=== PATIENT | female | born 1960 | race Caucasian/White ===

== ENCOUNTER 2017-11-09 15:54 | Outpatient (CLI) | payer BC ==
--- NOTE | 2017-11-10 11:39 | Mammography Report ---
DIGITAL SCREENING MAMMOGRAM: 11/09/2017 CLINICAL INDICATION: A 57-year-old nulliparous patient, for screening. COMPARISON: 12/2015, 06/2014, 02/2006. TECHNIQUE: Routine CC and MLO projections were obtained of the breasts. Bilateral laterally exaggerated craniocaudal views. FINDINGS: The breasts again demonstrate heterogeneously dense fibroglandular parenchyma bilaterally. In the left outer posterior breast, there is a possible obscured nodule. Further evaluation with spot compression views and possible ultrasound is recommended. No mammographically suspicious findings are appreciated in the right breast. IMPRESSION: INCOMPLETE EXAMINATION. RECOMMENDATION: ADDITIONAL EVALUATION OF THE LEFT BREAST ABOVE. BIRADS CATEGORY 0-INCOMPLETE. STANDARD QUALIFYING STATEMENTS: 1. This examination was reviewed with the aid of Computer-Aided Detection (CAD). 2. A negative or benign imaging report should not delay biopsy if clinically suspicious findings are present. Consider surgical consultation if warranted. More than 5% of cancers are not identified by imaging. 3. Dense breasts may obscure an underlying neoplasm. TD: 11/10/2017 11:39
== END 2017-11-09 15:55 | disposition home or self-care (01) ==
LOC: DI 15:54
PROVIDERS: ATTEND Internal Medicine
DX: Z12.31 Encounter for screening mammogram for malignant neoplasm of breast (principal); R92.8 Other abnormal and inconclusive findings on diagnostic imaging of breast
CPT/HCPCS: 77067

== ENCOUNTER 2017-11-29 08:50 | Outpatient (CLI) | payer BC ==
--- NOTE | 2017-11-30 15:37 | DEXA Report ---
EXAM: DEXA 11/29/2017 CLINICAL INDICATION: Osteopenia. TECHNIQUE: Dual energy x-ray absorptiometry (DXA) was performed on a [employer] system. Regions measured are the AP spine, femoral neck, and, if needed, forearm. COMPARISON: None. In accordance with the International Society for Clinical Densitometry (ISCD) guidelines, data from previous exams may be reanalyzed using current recommendations and techniques. This is done to allow a more accurate basis for comparison with the current study. FINDINGS: The data for the lumbar spine is as follows: REGION BMD (g/cm/cm) T-SCORE Z-SCORE L1 1.081 -0.4 0.6 L2 1.169 -0.3 0.7 L3 1.156 -0.4 0.6 L4 1.074 -1.1 -0.1 L1-L4 1.120 -0.5 0.5 NOTE: All evaluable vertebrae are used for classification. The data for the hip is as follows: REGION BMD (g/cm/cm) T-SCORE Z-SCORE Neck 0.845 -1.4 -0.3 TOTAL 0.880 -1.0 -0.2 NOTE: The femoral neck or total proximal femur, whichever is lowest, is used for classification. IMPRESSION WHO CLASSIFICATION BASED ON THE INTERNATIONAL REFERENCE STANDARD IS OSTEOPENIA (REFERENCE LEFT FEMORAL NECK). FRACTURE RISK INCREASED. RECOMMENDATION: Patients with diagnosis of osteoporosis or osteopenia should have regular bone mineral density assessment. For those eligible for Medicare, routine testing is allowed once every 2 years. Testing frequency can be increased for patients who have rapidly progressing disease or for those who are receiving medical therapy to restore bone mass. COMMENT World Health Organization (WHO) definitions for osteoporosis and osteopenia: NORMAL BMD: T-score at 1.0 or higher, fracture risk is low. OSTEOPENIA BMD: T-score between 1.0 and -2.5, fracture risk is increased. OSTEOPOROSIS BMD: T-score at 2.5 or lower, fracture risk high. National Osteoporosis Foundation recommends: 1. Obtain adequate dietary calcium (at least 1200 mg per day) and vitamin D (400 -800 international units per day). 2. Participate, as appropriate, in regular weightbearing and muscle- strengthening exercise. 3. Avoid tobacco use and reduce alcohol and caffeine intake. 4. For more detailed information see the website at www.NOF.org. TD: 11/29/2017 10:19 AJNE
== END 2017-11-29 08:51 | disposition home or self-care (01) ==
LOC: DI 08:50
PROVIDERS: ATTEND Internal Medicine
DX: M85.852 Other specified disorders of bone density and structure, left thigh (principal)
CPT/HCPCS: 77080

== ENCOUNTER 2018-01-11 14:32 | Outpatient (CLI) | payer BC ==
--- NOTE | 2018-01-11 14:56 | Mammography Report ---
Procedure Date: 01/11/2018 Accession Number: [id number] / [id number] Procedure: ISAIAS - Diag Special Views Dig LT CPT Code: FULL RESULT: EXAM: Diag Special Views Dig LT DATE: 01/11/2018 2:47 PM CLINICAL HISTORY: Possible nodule on screening TECHNIQUE: Left true lateral and spot compression views COMPARISON: 11/09/2017, 01/28/2016, 07/23/2014 FINDINGS: The left breast again demonstrates heterogeneously dense fibroglandular parenchyma. The questioned density in the left upper breast does not persist on additional imaging. No underlying mass lesion or architectural distortion is seen. IMPRESSION: Negative examination RECOMMENDATION: Routine annual screening unless otherwise clinically indicated. BIRADS CATEGORY 1: Negative STANDARD QUALIFYING STATEMENTS: 1. This examination was reviewed with the aid of Computer-Aided Detection (CAD). 2. A negative or benign imaging report should not delay biopsy if clinically suspicious findings are present. Consider surgical consultation if warrented. More than 5% of cancers are not identified by imaging. 3. Dense breasts may obscure an underlying neoplasm.
== END 2018-01-11 14:33 | disposition home or self-care (01) ==
LOC: DI 14:32
PROVIDERS: ATTEND Internal Medicine
DX: R92.8 Other abnormal and inconclusive findings on diagnostic imaging of breast (principal)

== ENCOUNTER 2018-07-26 10:48 | Outpatient (CLI) | payer BC ==
--- NOTE | 2018-07-26 12:03 | XRAY Report ---
Reason: CERVICALGIA, DORSALGIA, RADICULOPATHY Procedure Date: 07/26/2018 Accession Number: [id number] / [id number] Procedure: XR - Lumbar Spine 2 View CPT Code: FULL RESULT: EXAM: LUMBOSACRAL SPINE RADIOGRAPHY EXAM DATE: 07/26/2018 11:05 AM. CLINICAL HISTORY: Cervicalgia, dorsalgia, radiculopathy. COMPARISONS: Thoracic spine 2 view 07/26/2018 10:49 AM Cervical spine 2 view 07/26/2018 10:49 AM. TECHNIQUE: 2 views. FINDINGS: Alignment: Mild compensatory levoconvex lumbar scoliosis in the setting of thoracic scoliosis. Bones: Five [id number] lumbar vertebral bodies are present with vestigial ribs on T12. No fractures or bone lesions. Disks: Disk space height is mostly maintained with the exception of L5-S1, moderate loss of height at that level. Facets: Moderate to severe facet arthropathy at L4-L5. Sacroiliac Joints: Unremarkable. Soft Tissues: Normal. The visualized bowel gas pattern is normal. IMPRESSION: Facet arthropathy predominant degenerative changes with mild compensatory levoconvex scoliosis following the thoracic scoliosis. RADIA
--- NOTE | 2018-07-26 12:16 | XRAY Report ---
Reason: CERVICALGIA Procedure Date: 07/26/2018 Accession Number: [id number] / [id number] Procedure: XR - Cervical Spine 2 View CPT Code: FULL RESULT: EXAM: CERVICAL SPINE RADIOGRAPHY EXAM DATE: 07/26/2018 11:05 AM. CLINICAL HISTORY: Cervicalgia. COMPARISONS: None. TECHNIQUE: 3 views. FINDINGS: Alignment: 2 mm of anterolisthesis of C7 on T1, felt to be degenerative in nature. Bones: The cervical vertebral bodies and posterior elements are well visualized from the skull base through C7-T1. No fractures or bone lesions. Disks: Mild multilevel loss of disk space height most pronounced at C5 through C7. Facets: Mild multilevel facet arthropathy more pronounced at the lower cervical spine Soft Tissues: Normal. No prevertebral soft tissue swelling. The visualized lung apices are clear. IMPRESSION: Mild multilevel degenerative disease. RADIA
--- NOTE | 2018-07-26 12:16 | XRAY Report ---
Reason: CERVICALGIA, DORSALGIA, RADICULOPATHY Procedure Date: 07/26/2018 Accession Number: [id number] / [id number] Procedure: XR - Thoracic Spine 2 View CPT Code: FULL RESULT: EXAM: THORACIC SPINE RADIOGRAPHY EXAM DATE: 07/26/2018 11:05 AM. CLINICAL HISTORY: Cervicalgia, dorsalgia, radiculopathy. COMPARISON: None. TECHNIQUE: 2 views. FINDINGS: Alignment: There is a mild dextroconvex scoliosis centered about T5 where the spinous process is not clearly visualized. Findings are concerning for occult underlying segmentation defect, possibly at T3-T4. Bones: No fractures or bone lesions. Disks: Normal. Disk heights are maintained. Soft Tissues: Normal. The visualized lungs and cardiomediastinal silhouette are normal. IMPRESSION: Dextroconvex scoliosis centered about T5, possibly due to segmentation defect. RADIA
== END 2018-07-26 10:49 | disposition home or self-care (01) ==
LOC: DI 10:48
PROVIDERS: ATTEND Chiropractor
DX: M47.9 Spondylosis, unspecified (principal); M50.323 Other cervical disc degeneration at C6-C7 level; M43.13 Spondylolisthesis, cervicothoracic region; M41.9 Scoliosis, unspecified; M51.37 Other intervertebral disc degeneration, lumbosacral region
CPT/HCPCS: 72040; 72070; 72100

== ENCOUNTER 2018-11-28 02:36 | Emergency (ER) | payer BC ==
--- NOTE | 2018-11-28 02:48 | ED Physician Documentation ---
History of Present Illness - Stated complaint Stated Complaint: L SIDE,BACK PAIN - History obtained from History obtained from: Patient - History of Present Illness Timing: Prior to arrival - Additonal information Additional information: Patient is a previously healthy 58-year-old female presenting with fleeting chest discomfort that occurred about half an hour prior to arrival. Patient reports that she was sleeping and woke up with centralized back pain that was associated with left-sided chest pain. Patient describes this more as a pressure sensation. Patient also believes that this pain radiated towards her left arm. Patient sat up and this pain disappeared. Patient is unsure if she was sleeping in an odd position or if her arm had fallen asleep. However, she denies paresthesias, paralysis, shortness of breath, pleuritic chest pain, cough, acid reflux-like symptoms, abdominal pain, nausea, vomiting, urinary or stool changes, leg pain or swelling, lightheadedness, dizziness, diaphoresis, or syncope. Patient does note that she has had this type of fleeting sensation before when she has received acupuncture for her neck pain. Patient reports that she lays flat during acupuncture sessions and this pain sometimes occurs. At this time, patient is asymptomatic. No other improving or worsening factors noted. Review of Systems Cardiac: reports: Chest pain / pressure. denies: Palpitations, Pedal edema, Calf pain Respiratory: denies: Dyspnea PD PAST MEDICAL HISTORY - Past Medical History Past Medical History: No - Past Surgical History Past Surgical History: No - Allergies Allergies/Adverse Reactions: Allergies Allergy/AdvReac Type Severity Reaction Status Date / Time No Known Drug Allergies Allergy Verified 11/28/18 02:49 PD ED PE NORMAL - Vitals Vital signs reviewed: Yes - General General: Alert and oriented X 3, No acute distress, Well developed/nourished - HEENT HEENT: Atraumatic - Cardiac Cardiac: RRR, No murmur - Respiratory Respiratory: No respiratory distress, Clear bilaterally - Abdomen Abdomen: Normal bowel sounds, Soft, Non tender, Non distended - Derm Derm: Normal color, Warm and dry, No rash - Extremities Extremities: No deformity, No tenderness to palpate, No edema, No calf tenderness / cord - Neuro Neuro: Alert and oriented X 3, No motor deficit, No sensory deficit - Psych Psych: Normal mood, Normal affect Results - Vitals Vitals: Vital Signs - 24 hr 11/28/18 11/28/18 11/28/18 02:46 03:23 03:32 Temperature 36.3 C L Heart Rate 60 64 Respiratory 17 17 17 Rate Blood Pressure 133/84 H O2 Saturation 100 100 11/28/18 11/28/18 11/28/18 03:49 04:08 04:39 Temperature Heart Rate 57 L Respiratory 16 14 17 Rate Blood Pressure 138/80 H O2 Saturation 100 11/28/18 11/28/18 11/28/18 04:42 05:39 06:10 Temperature Heart Rate 62 60 Respiratory 16 15 17 Rate Blood Pressure 141/87 H O2 Saturation 98 97 Oxygen O2 Source Room air - EKG (time done) 0250 Rate: Rate (enter#) (56) Rhythm: NSR Ischemia: Other (Questionable mild elevation of ST in V2 and V3, but feel more likely wndering baseline/artifact) - Labs Labs: Laboratory Tests 11/28/18 11/28/18 11/28/18 03:15 03:15 03:15 WBC 5.3 RBC 4.20 Hgb 12.6 Hct 36.8 L MCV 87.7 MCH 29.9 MCHC 34.1 RDW 13.3 Plt Count 265 MPV 7.6 L Neut # (Auto) 2.2 Lymph # (Auto) 2.1 [place] # (Auto) 0.7 Eos # (Auto) 0.2 Baso # (Auto) 0.1 Absolute Nucleated RBC 0.00 Nucleated RBC % 0.0 Sodium 139 Potassium 4.1 Chloride 103 Carbon Dioxide 26 Anion Gap 10.0 BUN 22 H Creatinine 0.8 Estimated GFR (MDRD) 73 L Glucose 95 Calcium 10.0 Total Bilirubin 0.9 AST 23 ALT 19 Alkaline Phosphatase 57 Troponin I < 0.04 Total Protein 7.7 Albumin 4.0 Globulin 3.7 Albumin/Globulin Ratio 1.1 Lipase 53 H 11/28/18 06:17 WBC RBC Hgb Hct MCV MCH MCHC RDW Plt Count MPV Neut # (Auto) Lymph # (Auto) [place] # (Auto) Eos # (Auto) Baso # (Auto) Absolute Nucleated RBC Nucleated RBC % Sodium Potassium Chloride Carbon Dioxide Anion Gap BUN Creatinine Estimated GFR (MDRD) Glucose Calcium Total Bilirubin AST ALT Alkaline Phosphatase Troponin I < 0.04 Total Protein Albumin Globulin Albumin/Globulin Ratio Lipase PD MEDICAL DECISION MAKING - ED course Complexity details: reviewed results, re-evaluated patient, considered dif ferential, d/w patient, d/w family ED course: Patient describes fleeting chest discomfort that almost sounds positional making musculoskeletal discomfort or spasm possible. Patient denies GERD-like symptoms and have lower suspicion for GERD, anxiety, esophageal spasm necessarily. Patient denies respiratory component and do not feel that she likely has PE or pneumonia and can otherwise be ruled out by PERC criteria.Obtained chest x-ray to further evaluate, which returned unremarkable for acute pathology. EKG did not show signs of ischemia lab work including repeat troponins obtained which also returned unremarkable. I have low suspicion at this time for acute ischemia, ACS, current infarction, unstable angina. However, had repeated lengthy discussions with patient and family regarding the need for close primary care follow-up and referral to cardiology to obtain stress test and echocardiogram. Also discussed strict return precautions. Otherwise, I feel the patient is safe to discharge home. Of note, during ED stay, patient remained asymptomatic and without complaints. Patient and family voiced understanding of plan and are comfortable with discharge. Departure - Departure Disposition: 01 Home, Self Care Clinical Impression: Chest pain, unspecified Qualifiers: Chest pain type: unspecified Qualified Code(s): R07.9 - Chest pain, unspecified Condition: Good Instructions: ED Chest Pain Atypical Unkn Cause Follow-Up: Nandini Garcia MD [Primary Care Provider] - Tomorrow Comments: Please contact you primary care physician later today for referral to cardiology. Recommend obtaining cardiology follow-up which will likely include stress test and echocardiogram to further evaluate for underlying heart disease. Return to ED sooner if expands return of symptoms, worsening of symptoms, or other concerns.
[2018-11-28] MEDS ORDERED: SODIUM CHLORIDE 0.9% 1,000 ML IV ONE (03:03)
[2018-11-28] MEDS ORDERED: ASPIRIN CHEW 81 MG TABLET PO STA (03:03)
[2018-11-28 03:27] LABS: BASOPHILS # (AUTO) 0.1 10^3/uL (0.0-0.1); BASOPHILS % (AUTO) 1.4 %; EOSINOPHILS # (AUTO) 0.2 10^3/uL (0.0-0.7); EOSINOPHILS % (AUTO) 3.9 %; HGB - HEMOGLOBIN 12.6 g/dL (12.0-16.0); LYMPHOCYTES # (AUTO) 2.1 10^3/uL (1.5-3.5); LYMPHOCYTES % (AUTO) 40.5 %; MEAN CORPUSCULAR HEMOGLOBIN 29.9 pg (27.0-31.0); MEAN CORPUSCULAR HGB CONC 34.1 g/dL (32.0-36.0); MEAN CORPUSCULAR VOLUME 87.7 fL (81.0-99.0); MEAN PLATELET VOLUME 7.6 fL (7.9-10.8); MONOCYTES # (AUTO) 0.7 10^3/uL (0.0-1.0); MONOCYTES % (AUTO) 12.7 %; NEUTROPHILS # (AUTO) 2.2 10^3/uL (1.5-6.6); NEUTROPHILS % (AUTO) 41.5 %; PLT - PLATELET COUNT 265 10^3/uL (130-450); RED CELL DISTRIBUTION WIDTH 13.3 % (12.0-15.0); WHITE BLOOD COUNT 5.3 x10^3/uL (4.8-10.8)
[2018-11-28 03:37] LABS: ALBUMIN/GLOBULIN RATIO 1.1 (1.0-2.2); BILIRUBIN,TOTAL 0.9 mg/dL (0.2-1.0); CREATININE 0.8 mg/dL (0.4-1.0); TOTAL PROTEIN 7.7 g/dL (6.7-8.2)
--- NOTE | 2018-11-28 03:49 | XRAY Report ---
Reason: chest pain Procedure Date: 11/28/2018 Accession Number: [id number] / [id number] Procedure: XR - Chest 2 View X-Ray CPT Code: 60710 FULL RESULT: EXAM: CHEST RADIOGRAPHY EXAM DATE: 11/28/2018 03:40 AM. CLINICAL HISTORY: Chest pain. COMPARISON: None. TECHNIQUE: 2 views. FINDINGS: Lungs/Pleura: Large lung volumes. No alveolar consolidation or definite pleural effusion. Scattered small nodular densities which may be calcified. No pneumothorax. Mediastinum: Heart and mediastinal contours are unremarkable. Other: Surgical clips suggesting prior cholecystectomy. IMPRESSION: 1. Large lung volumes. 2. Scattered small nodular densities, possibly calcified granulomas. RADIA
[2018-11-28 06:53] VITALS: BP 116/74
== END 2018-11-28 06:53 | disposition home or self-care (01) ==
LOC: ED 02:36
DX: R07.9 Chest pain, unspecified (principal)
CPT/HCPCS: 36415; 71046; 80053; 83690; 84484; 85025; 93005; 96360; 99284; A9270

== ENCOUNTER 2020-06-15 14:05 | Outpatient (CLI) | payer BC ==
[2020-06-15 17:41] LABS: BASOPHILS % (AUTO) 0.3 %; EOSINOPHILS # (AUTO) 0.1 10^3/uL (0.0-0.7); EOSINOPHILS % (AUTO) 1.4 %; HGB - HEMOGLOBIN 12.6 g/dL (12.0-16.0); LYMPHOCYTES # (AUTO) 1.4 10^3/uL (1.5-3.5); LYMPHOCYTES % (AUTO) 24.7 %; MEAN CORPUSCULAR HEMOGLOBIN 30.1 pg (27.0-31.0); MEAN CORPUSCULAR HGB CONC 32.8 g/dL (32.0-36.0); MEAN CORPUSCULAR VOLUME 91.6 fL (81.0-99.0); MONOCYTES # (AUTO) 0.6 10^3/uL (0.0-1.0); MONOCYTES % (AUTO) 10.7 %; NEUTROPHILS # (AUTO) 3.7 10^3/uL (1.5-6.6); NEUTROPHILS % (AUTO) 62.7 %; PLT - PLATELET COUNT 289 10^3/uL (130-450); RED BLOOD COUNT 4.19 10^6/uL (4.20-5.40); RED CELL DISTRIBUTION WIDTH 12.9 % (12.0-15.0); WHITE BLOOD COUNT 5.8 x10^3/uL (4.8-10.8)
[2020-06-15 18:05] LABS: ALBUMIN 4.1 g/dL (3.2-5.5); ALBUMIN/GLOBULIN RATIO 1.1 (1.0-2.2); ALKALINE PHOSPHATASE 51 IU/L (42-121); ALT ALANINE AMINOTRANSFERASE 18 IU/L (10-60); AST ASPARTATE AMINOTRANSFERASE 25 IU/L (10-42); BILIRUBIN,TOTAL 1.1 mg/dL (0.2-1.0); BUN - BLOOD UREA NITROGEN 20 mg/dL (6-20); CALCIUM 9.9 mg/dL (8.5-10.3); CARBON DIOXIDE - CO2 26 mmol/L (21-32); CHLORIDE 103 mmol/L (101-111); CREATININE 0.9 mg/dL (0.4-1.0); GLUCOSE 76 mg/dL (70-100); SODIUM 140 mmol/L (135-145); TOTAL PROTEIN 7.7 g/dL (6.7-8.2)
[2020-06-15 18:09] LABS: CRP - C-REACTIVE PROTEIN < 1.0 mg/dL (0-1.0)
== END 2020-06-15 23:59 | disposition home or self-care (01) ==
LOC: LAB.WCP 14:05
PROVIDERS: ATTEND Family Medicine
DX: L98.9 Disorder of the skin and subcutaneous tissue, unspecified (principal); Z90.5 Acquired absence of kidney
CPT/HCPCS: 36415; 80053; 85025; 85651; 86038; 86039; 86140

== ENCOUNTER 2021-03-23 14:18 | Outpatient (CLI) | payer BC ==
--- NOTE | 2021-03-24 12:15 | Mammography Report ---
BILATERAL DIGITAL SCREENING MAMMOGRAM 3D/2D: 03/23/2021 CLINICAL: Routine screening. Comparison is made to exams dated: 03/11/2020 mammogram, 11/09/2017 mammogram, 01/28/2016 mammogram, an d 01/11/2018 mammogram - [facility]. The tissue of both breasts is heterogeneously dense. This may lower the sensitivity of mammography. No significant masses, calcifications, or other findings are seen in either breast. There has been no significant interval change. IMPRESSION: NEGATIVE There is no mammographic evidence of malignancy. A 1 year screening mammogram is recommended. This exam was interpreted at Station ID: [id number]. NOTE: For mammograms, a report in lay terms will be sent to the patient. Approximately 15% of breast malignancies will not be visualized mammographically. In the management of a palpable breast mass, a negative mammogram must not discourage biopsy of a clinically suspicious lesion. Electronically Signed By: Guanaco Christensen M.D. ar/penrad:03/23/2021 16:11:10 ACR BI-RADS Category 1: Negative 3341F PARENCHYMAL PATTERN: (D) - The breast(s) demonstrate(s) heterogeneously dense fibroglandular tim fletcher. BI-RADS CATEGORY: (1) - 1 RECOMMENDATION: (ANNUAL) - Recommend routine annual screening mammography. [id number] 1 year screening LATERALITY: (B)
== END 2021-03-23 14:19 | disposition home or self-care (01) ==
LOC: DI 14:18
DX: Z12.31 Encounter for screening mammogram for malignant neoplasm of breast (principal)

== ENCOUNTER 2021-04-28 07:41 | Day surgery (SDC) | payer BC ==
[~2021-04-28 07:41] MED LIST: PROPOFOL 200 MG/20 ML VIAL IVP ONE
[2021-04-28] MEDS ORDERED: LACTATED RINGERS 1,000 ML IV ONE ×2 (07:45→09:39)
--- NOTE | 2021-04-28 08:54 | ANESTHESIA ---
Pre-Anesthesia VS, & Labs - Diagnosis screening - Procedure colonoscopy w/possible biopsies Vital Signs: Temp Pulse Resp BP Pulse Ox 36.7 C 67 12 129/86 H 100 04/28/21 07:46 04/28/21 07:46 04/28/21 07:46 04/28/21 07:46 04/28/21 07:46 Height: 5 ft 7 in Weight (kg): 65 kg Body Mass Index: 22.4 BMI Classification: Healthy weight - NPO >8 hours - Is Patient ?: No - Lab Results Lab results reviewed: Yes Home Medications and Allergies Home Medications: Ambulatory Orders Ascorbic Acid [Vitamin C] 600 mg PO DAILY 04/27/21 Calcium Carbonate [Calcium] 600 mg PO DAILY 04/27/21 Cholecalciferol (Vitamin D3) [Vitamin D3] 125 mcg PO DAILY 04/27/21 Cyanocobalamin (Vitamin B-12) [Vitamin B-12] 1,000 mcg PO DAILY 04/27/21 Cyclosporine [Restasis Multidose] 5.5 ml OP BID 04/27/21 Fluorometholone [Fml] 5 ml OP DAILY PRN 04/27/21 [place]-3 Fatty Acids [Fish Oil Concentrate] 690 mg PO DAILY 04/27/21 [place] Oil 1,300 ea PO DAILY 04/27/21 Vitamin A 2,400 mcg PO DAILY 04/27/21 Ascorbic Acid [Vitamin C] 600 mg PO DAILY 04/27/21 Calcium Carbonate [Calcium] 600 mg PO DAILY 04/27/21 Cholecalciferol (Vitamin D3) [Vitamin D3] 125 mcg PO DAILY 04/27/21 Cyanocobalamin (Vitamin B-12) [Vitamin B-12] 1,000 mcg PO DAILY 04/27/21 Cyclosporine [Restasis Multidose] 5.5 ml OP BID 04/27/21 Fluorometholone [Fml] 5 ml OP DAILY PRN 04/27/21 [place]-3 Fatty Acids [Fish Oil Concentrate] 690 mg PO DAILY 04/27/21 [place] Oil 1,300 ea PO DAILY 04/27/21 Vitamin A 2,400 mcg PO DAILY 04/27/21 Allergies/Adverse Reactions: Allergies Allergy/AdvReac Type Severity Reaction Status Date / Time No Known Drug Allergies Allergy Verified 11/28/18 02:49 Anes History & Medical History - Anesthetic History Anesthesia Complications: reports: No previous complications Family history of Anesthesia Complications: Denies Family history of Malignant Hyperthermia: Denies - Medical History Cardiovascular: reports: None Pulmonary: reports: None Gastrointestinal: reports: None Urinary: reports: None Neuro: reports: None Musculoskeletal: reports: None Endocrine/Autoimmune: reports: None Blood Disorders: reports: None Skin: reports: None Smoking Status: Never smoker - Surgical History General: reports: Other Orthopedic: reports: Carpal Tunnel surgery, Other Exam General: Alert, Oriented x3, Cooperative Mouth Openin Fingerbreadth Neck Mobility: Normal Mallampati classification: II Thyromental Distance: 4-6 cm Respiratory: Lungs clear, Normal breath sounds, No respiratory distress Cardiovascular: Regular rate Neurological: Normal speech Cognitive Status: Within normal limits Plan Anesthesia Type: Total IV Consent for Procedure(s) Verified and Reviewed: Yes Code Status: Attempt Resuscitation ASA classification: 2-Mild systemic disease Is this case an emergency?: No
[2021-04-28] MEDS ORDERED: MIDAZOLAM 2 MG/2 ML VIAL ONE (09:28)
[2021-04-28] MEDS ORDERED: fentaNYL 100 MCG/2 ML VIAL ONE (09:28)
[2021-04-28 09:53] VITALS: BP 115/70
--- NOTE | 2021-04-28 09:57 | ANESTHESIA POST OP EVALUATION ---
Anesthesia Post Eval - Post Anesthesia Eval Vitals: Last Vital Signs Temp 36.6 C 04/28/21 09:49 Pulse 73 04/28/21 09:49 Resp 12 04/28/21 09:49 BP 115/70 04/28/21 09:49 Pulse Ox 98 04/28/21 09:49 CV Function Including HR & BP: Stable Pain Control: Satisfactory Nausea & Vomiting: Negative Mental Status: Baseline Respiratory Status: Airway Patent Hydration Status: Satisfactory Anesthesia Complications: None
[2021-04-28] MEDS ORDERED: ONDANSETRON ODT 4 MG TABLET ONE (10:08)
== END 2021-04-28 07:42 | disposition home or self-care (01) ==
LOC: SDS 07:41
PROVIDERS: ATTEND Surgery
DX: Z12.11 Encounter for screening for malignant neoplasm of colon (principal); K64.8 Other hemorrhoids; Z86.010 Personal history of colon polyps
CPT/HCPCS: 45378; J7120; Q0162

== ENCOUNTER 2021-07-20 08:00 | Outpatient (CLI) | payer BC | END 2021-07-20 23:59 | LOC: LAB.N 08:00 | PROVIDERS: ATTEND Physician Assistant | DX: R05.3 Chronic cough (principal); Z20.822 Contact with and (suspected) exposure to COVID-19 ==

== ENCOUNTER 2023-05-10 13:38 | Outpatient (CLI) | payer BC ==
--- NOTE | 2023-05-11 10:01 | Mammography Report ---
BILATERAL DIGITAL SCREENING MAMMOGRAM 3D/2D: 05/10/2023 CLINICAL: Routine screening. Comparison is made to exams dated: 03/23/2021 mammogram, 03/11/2020 mammogram, 01/11/2018 mammogram, 06/2018 mammogram, 01/28/2016 mammogram, and 07/23/2014 mammogram - [facility]. Both breasts are heterogeneously dense, which may obscure small masses (category c / 51-75% glandular tissue). No significant masses, calcifications, or other findings are seen in either breast. There has been no significant interval change. IMPRESSION: NEGATIVE There is no mammographic evidence of malignancy. A 1 year screening mammogram is recommended. Based on the Tyrer Cuzick model (a risk assessment model) the patients lifetime risk is 11.1% and he r 10 year risk is 5.2%. According to the ACR, ACS, and NCCN guidelines, an annual breast MRI exam anne ng with mammogram is recommended if the patients lifetime risk is 20% or greater. This exam was interpreted at Station ID:[id number]. NOTE: For mammograms, a report in lay terms will be sent to the patient. Approximately 15% of breast malignancies will not be visualized mammographically. In the management of a palpable breast mass, a negative mammogram must not discourage biopsy of a clinically suspicious lesion. Electronically Signed By: Krystian Cevallos M.D. aty/:05/11/2023 06:58:41 letter sent: No_Letter ACR BI-RADS Category 1: Negative 3341F PARENCHYMAL PATTERN: (D) - The breast(s) demonstrate(s) heterogeneously dense fibroglandular tim fletcher. BI-RADS CATEGORY: (1) - 1 Mammogram [id number] 1 year screening LATERALITY: (B)
== END 2023-05-10 13:39 | disposition home or self-care (01) ==
LOC: DI 13:38
DX: Z12.31 Encounter for screening mammogram for malignant neoplasm of breast (principal); R92.333 Mammographic heterogeneous density, bilateral breasts